=== PATIENT | female | born 2000 | race Two or more races ===

== ENCOUNTER 2024-11-07 09:07 | Outpatient (AMB) | payer MEDICAID, SELFPAY ==
[2024-11-07 09:21] VITALS: BP 118/75; PULSE 91; RESP 18; TEMP 36.3; O2SAT 95; BMI 32.9
--- NOTE | 2024-11-07 09:21 | AMB.OBINITIA ---
Vital Signs 11/07/24 09:21 Height 1.65 m Height Method Stated Weight 89.811 kg Weight Measurement Method Standing Scale BMI 32.9 BP 118/75 Blood Pressure Source Automatic Cuff Blood Pressure Location Left Upper Arm Position Sitting Respiration 18 Pulse 91 Pulse Source Monitor Temp 97.4 F Temp Source Oral Pulse Oximetry (%) 95 Oxygen Delivery Method Room Air Allergies/Home Meds Allergies & Medications Allergies No Known Allergies Allergy (Verified 11/07/24 09:22) Medication Reconciliation folic acid 1 mg tablet 1 mg PO DAILY 11/10/23 [History Confirmed 11/10/23] vits no.124-ferrous fum 27 mg iron-folic acid 800 mcg tablet ( Vitamin) 1 tab PO QDAY 90 days #90 tabs 11/07/24 [Rx] Intake Visit Data Collection New Patient or Established: Established Patient (seen at [facility] within 3 years) Reason for Visit:: CARE Seen by Clinical Staff ONLY (RN/MA): No Physical Therapist Center Manager Required: No Do You Feel Safe at Home: Yes Authorities Contacted: N/A PCP or OBGYN visit in last 3 months: Yes Hx Now: Yes Are you currently on any form of Control: No Last menstrual period: 04/05/24 Pain Present Currently: No Pain Scale Used: Martínez-Mancilla/Numerical Pain scale:: 0 Smoking Status Smoking Status: Never smoker Questionnaires Covid-19 Vaccine Questionnaire Has patient been vacinated for Covid-19 Have you been vacinated for Covid-19: Yes PHQ-9 PHQ-2 Over the last 2 weeks, how often have you been bothered by any of the following problems? 1. Little interest or pleasure in doing things: not at all 2. Feeling down, depressed, or hopeless: not at all Total score: 0 PHQ-9 3. Trouble falling or staying asleep, or sleeping too much: Not at all 4. Feeling tired or having little energy: Not at all 5. Poor appetite or overeating: Not at all 6. Feeling bad about yourself - or that you are a failure or have let yourself or your family down: Not at all 7. Trouble concentrating on things, such as reading the newspaper or watching television: Not at all 8. Moving or speaking so slowly that other people could have noticed? - Or the opposite - being so fidgety or restless that you have been moving around a lot more than usual: not at all 9. Thoughts that you would be better off or of hurting yourself in some way: Not at all Total score: 0 Source: Developed by Drs. Hussain Aguirre, Lucille Boone, Ino Encarnacion and colleagues, with an educational sharon from [employer]. Depression screen completed yes Social History Living Situation History Marital Status: Lives With: Family Housing: House Tobacco History Smoking Status: Never smoker Second Hand Smoke Exposure: No Alcohol History Alcohol Intake: Never Substance Use History Substance Use: NONE Domestic Abuse History Do You Feel Safe at Home: Yes Past Medical History Past Medical History Have you ever been diagnosed with any of the following: Neurological Problems Cerebrovascular Accident (CVA): No Transient Ischemic Attacks (TIA): No Dementia: No Alzheimer's Disease: No Parkinson's Disease: No Brain Tumor: No Meningitis: No Seizures: No Epilepsy: No Multiple Sclerosis: No Cardiology Problems Congestive Heart Failure: No Respiratory Problems Chronic Obstructive Pulmonary Disease (COPD): No Stomache/Intestinal Problems Hepatitis: No Diverticulitis: No Diverticulosis: No Ulcer: No Colorectal Cancer: No Crohn's Disease: No Obstructive Bowel: No Hiatal Hernia: No Hemorrhoids: No Gastroesophageal Reflux Disease: No Polyps: No Genital/Urinary Problems Renal Disease: No Reproductive Problems Breast Cancer: No Endometriosis: No Fibroids: No Genital Herpes: No Gonorrhea: No Pelvic Inflammatory Disease: No Musculoskeletal Problems Muscular Dystrophy: No Myasthenia Gravis: No Marfan's Syndrome: No Bone Cancer: No Arthritis: No Rheumatoid Arthritis: No Osteoporosis: No Degenerative Disk Disease: No Fractures: No Degenerative Joint Disease: No Osteomyelitis: No Head,Eye,Nose,Throat Problems Cataracts: No Glaucoma: No Blind: No Retinal Detachment: No Macular Degeneration: No Chronic Ear Infections: No Deafness: No Eye Prosthesis: No Endocrine Problems Diabetes Mellitus Type 1: No Diabetes Mellitus Type 2: No Blood Problems Anemia: No Leukemia: No Hemophilia: No Thalassemia: No Sickle Cell Disease: No Clotting Problems: No Psychologic Problems Schizophrenia: No Recreational Drug Use: No Bipolar Disorder: No Depression: No Anxiety: No Other Problems Hospitalization: No Down Syndrome: No Developmental Delay: No Shingles: No Falls: No Blood Transfusions: No Blood Transfusion Reaction: No Anesthesia Reactions: No Organ Transplant: No Chemotherapy: No Radiation Therapy: No Hyperbaric Therapy: No MRSA: No VRSA: No Vancomycin-Resistant Enterococci: No Human Immunodeficiency Virus (HIV): No Chicken Pox: No Measles: No Mumps: No Rubella (Chadian Measles): No Pertussis: No Clostridium Difficile: No Cancer: No Surgical History Angioplasty: No Appendectomy: No Bariatric Surgery: No Breast Surgery: No Cancer Surgery: No Carotid Endarterectomy: No Cholecystectomy: No Colectomy: No History of Present Illness MICHELE Mart is a 24-year-old 2 para 1 that is a transfer of care from [facility]. Patient comes to [facility] for her first visit today. Last menstrual period was April 05, 2024. Estimated due date January 10, 2025. Patient's first visit was at 10 weeks 3 days at [facility]. care uneventful. Patient has had several anatomy scans at in [place] at [facility]. Her next visit is November 14. Patient had 1 normal . History of hypertension at the end of the . So patient is currently taking low-dose baby aspirin 1 daily. Performed patient denies chronic illness. Denies surgeries. Denies social problems. Patient works in a [employer]. Denies any signs symptoms of at this time. Denies labor complaints. Reports good movement. Patient is A+, antibody screen negative, RPR nonreactive, rubella immune, hepatitis B negative, hep C negative, HIV is negative. GC and Chlamydia were negative. 1 hour GTT was 103. Patient's NIPT and AFP were negative. Screening tests were negative as well. OB Initial Visit OB Flowsheet OB Flowsheet Initial Weight: Not Recorded Date <del>?</del> EGA Weight Edema CTX Effacement BP Fundal ht Pres Dilation Effacement Station Visit Note Alb Glu FHR Mov 11/07/24 <del>?</del> 30w 6d 89.811 kg absent absent 118/75 30 24-year-old multipara for first visit. Patient was a transfer of care to [facility] from [facility]. Her has been uncomplicated. Patient reports movement. Denies contractions. Denies leaking or bleeding as well. Patient is currently taking low-dose baby aspirin because of history of preeclampsia her first . Patient's first was uncomplicated vaginal delivery. Tdap today. Follow-up maternal- appointment November 14. Discussed diet and weight gain. Increase fluids. Will refill vitamins 145 active Menstrual History Menstrual reliability: definite Flow: normal Menstrual regularity: regular Monthly: Yes Age at menarche: 11 On control pills at conception: No Associated symptoms (LMP): Reports nausea OB History : 2 Para: 1 Hx # Pregnancies: 0 Hx Total # of Abortions (Spontaneous & Elective): 0 # of Living Children: 1 Delivery History 1st : Child's name: mirta date: 11/23/23 sex: male Gestational age at delivery (weeks): 40 Delivery type: vaginal weight (lbs): 3175.147 g Delivery complications: PIH History of depression before or after : No Infection History & Risk Evaluation History of STDs: none HIV risk evaluation: low risk Hepatitis B risk evaluation: low risk Patient or partner has history of Genital Herpes: No Genetic Screening & History Genetic Screening/Teratology Counseling - Includes patient, baby's father, or anyone in either family with: 1. Patient's age 35 years or older as of estimated date of delivery: No 2. Thalassemia (Paraguayan, Romanian, Mediterranean, or Background); MCV less than 80: No 3. Neural Tube Defect (Meningomyelocele, Spina Bifida, or Anencephaly): No 4. Congenital Heart Defect: No 5. Down Syndrome: No 6. Mk-Sachs (Ashkenazi Oriental Orthodox, Cajun, Belizean Hettinger): No 7. Hermelinda Disease (Ashkenazi Oriental Orthodox): No 8. Familial Dysautonomia (Ashkenazi Oriental Orthodox): No 9. Sickle Cell Disease or Trait (): No 10. Hemophilia or other blood disorders: No 11. Muscular Dystrophy: No 12. Cystic Fibrosis: No 13. Dina's Chorea: No 14. Mental Retardation/Autism: No 15. Other inherited genetic or chromosomal disorder: No 16. Maternal Metabolic Disorder (EG,TYPE 1 Diabetes, PKU): No 17. Patient or baby's father had a child with defects not listed above: No 18. Recurrent loss or a stillbirth: No 19. Medications (including supplements, vitamins, herbs or otc drugs)/illicit/recreational drugs/alcohol since last menstrual period: No 20. Any other: No Infection History 1. Live with someone with TB or exposed to TB: No 2. Rash or viral illness since last menstrual period: No 3. Hepatitis B,C: No Other (see comments) Source: [employer] Review of Systems Review of Systems Systems Reviewed: All systems reviewed, normal except as documented Gastrointestinal Gastrointestinal: Reports nausea Exam General Limitations: no limitations General Appearance: alert, in no apparent distress, comfortable, cooperative, healthy appearing, well developed and well groomed Chest Chest inspection: Present normal inspection and symmetric chest wall rise Resp Respiratory exam: Present normal lung sounds bilaterally Card Cardiovascular exam: Present regular rate, normal rhythm and normal heart sounds Abdominal Abdominal exam: Present soft (FH:30, fht 145) and normal bowel sounds Psych Psychiatric exam: Present normal affect and normal mood Assessment & Plan Diagnosis / Problem List (1) Supervision of normal intrauterine in multigravida in third trimester: Status: Acute Plan Refill vitamins. Gave patient 90 and 3 refills. Tdap today. Discussed kick count and labor precautions. Patient will continue low-dose baby aspirin. Discussed diet and weight. Return in 2 weeks visit Additional Plan Follow Up: 2 Weeks (rtc 2 week ob check) Office Procedures OB Clinic LOC & Office Proc's Nursing/Assessment Patient Status: Established Patient OB Clinic Nursing Assessment: BP Monitoring, Medication Reconciliation, Update PMH in EMR and Vital Signs OB Clinic Coordination of Care: Consent,records obtained, informed consent, Education Simp Pt/Fam and Staff clarify orders Special Needs: Heart tones Established Patient Charge Established Patient Point Assignment: 105 Established Patient Point Charge: EP Level 3 (80-115) Injection/Vaccine Admin SQ Im Injection: Yes Immunizations Adacel(Tdap Adolesn/Adult)(PF) 2 Lf-(2.5-5-3-5)-5 Lf/0.5 mL IM syringe Performing Provider: Rosa Fuller CNM Performing Location: [facility] Administered by: Sharmaine Butcher MA on 11/07/24 09:49 Dose Route Admin Location Dispensed Lot Number Expiration Date [facility] Inspector [employer] 0.5 mL IM Left Deltoid 1 mL [id number] 10/20/26 [id number] [employer] VIS Given Date VIS Provided VIS Publication Date 11/07/24 Single Vaccine 24 Eligibility Eligibility Date Funding Source [facility]
== END 2024-11-07 09:42 | disposition home or self-care (01) ==
LOC: HODSOBC 09:07
PROVIDERS: Supervising Provider Obstetrics & Gynecology; Visit Provider Advanced Practice Midwife
DX: Z34.83 Encounter for supervision of other normal pregnancy, third trimester (principal); Z3A.30 30 weeks gestation of pregnancy; Z23 Encounter for immunization
CPT/HCPCS: 90471; 90715; 96372; 99213; G0463

== ENCOUNTER 2024-11-26 11:09 | Outpatient (AMB) | payer MEDICAID, SELFPAY ==
--- NOTE | 2024-11-26 11:17 | OBCLNT_ITS ---
Vital Signs 11/26/24 11:23 Height 1.65 m Height Method Stated Weight 90.889 kg Weight Measurement Method Standing Scale BMI 33.3 BP 126/80 Blood Pressure Source Automatic Cuff Blood Pressure Location Left Upper Arm Position Sitting Respiration 16 Pulse 95 Pulse Source Monitor Temp 97.2 F Temp Source Oral Pulse Oximetry (%) 97 Oxygen Delivery Method Room Air Allergies/Home Meds Allergies & Medications Allergies No Known Allergies Allergy (Verified 11/26/24 11:24) Medication Reconciliation folic acid 1 mg tablet 1 mg PO DAILY 11/10/23 [History Confirmed 11/26/24] vits no.124-ferrous fum 27 mg iron-folic acid 800 mcg tablet ( Vitamin) 1 tab PO QDAY 90 days #90 tabs 11/07/24 [Rx] Intake Visit Data Collection New Patient or Established: Established Patient (seen at [facility] within 3 years) Reason for Visit:: CARE Seen by Clinical Staff ONLY (RN/MA): No Washerette Machine Operator Required: No Do You Feel Safe at Home: Yes Authorities Contacted: N/A PCP or OBGYN visit in last 3 months: Yes Hx Now: Yes Are you currently on any form of Control: No Pain Present Currently: No Pain Scale Used: Martínez-Mancilla/Numerical Pain scale:: 0 Smoking Status Smoking Status: Never smoker Questionnaires Covid-19 Vaccine Questionnaire Has patient been vacinated for Covid-19 Have you been vacinated for Covid-19: Yes PHQ-9 PHQ-2 Over the last 2 weeks, how often have you been bothered by any of the following problems? 1. Little interest or pleasure in doing things: not at all 2. Feeling down, depressed, or hopeless: not at all Total score: 0 PHQ-9 3. Trouble falling or staying asleep, or sleeping too much: Not at all 4. Feeling tired or having little energy: Not at all 5. Poor appetite or overeating: Not at all 6. Feeling bad about yourself - or that you are a failure or have let yourself or your family down: Not at all 7. Trouble concentrating on things, such as reading the newspaper or watching television: Not at all 8. Moving or speaking so slowly that other people could have noticed? - Or the opposite - being so fidgety or restless that you have been moving around a lot more than usual: not at all 9. Thoughts that you would be better off or of hurting yourself in some way: Not at all Total score: 0 Source: Developed by Drs. Hussain Aguirre, Lucille Boone, Ino Encarnacion and colleagues, with an educational sharon from [employer]. Depression screen completed yes 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 at Home: Yes Past Medical History Past Medical History Have you ever been diagnosed with any of the following: Neurological Problems Cerebrovascular Accident (CVA): No Transient Ischemic Attacks (TIA): No Dementia: No Alzheimer's Disease: No Parkinson's Disease: No Brain Tumor: No Meningitis: No Seizures: No Epilepsy: No Multiple Sclerosis: No Cardiology Problems Congestive Heart Failure: No Respiratory Problems Chronic Obstructive Pulmonary Disease (COPD): No Stomache/Intestinal Problems Hepatitis: No Diverticulitis: No Diverticulosis: No Ulcer: No Colorectal Cancer: No Crohn's Disease: No Obstructive Bowel: No Hiatal Hernia: No Hemorrhoids: No Gastroesophageal Reflux Disease: No Genital/Urinary Problems Renal Disease: No Reproductive Problems Breast Cancer: No Endometriosis: No Fibroids: No Genital Herpes: No Gonorrhea: No Pelvic Inflammatory Disease: No Musculoskeletal Problems Muscular Dystrophy: No Myasthenia Gravis: No Marfan's Syndrome: No Bone Cancer: No Arthritis: No Rheumatoid Arthritis: No Osteoporosis: No Degenerative Disk Disease: No Fractures: No Degenerative Joint Disease: No Osteomyelitis: No Head,Eye,Nose,Throat Problems Cataracts: No Glaucoma: No Blind: No Retinal Detachment: No Macular Degeneration: No Chronic Ear Infections: No Deafness: No Eye Prosthesis: No Endocrine Problems Diabetes Mellitus Type 1: No Diabetes Mellitus Type 2: No Blood Problems Anemia: No Leukemia: No Hemophilia: No Thalassemia: No Sickle Cell Disease: No Clotting Problems: No Psychologic Problems Schizophrenia: No Recreational Drug Use: No Bipolar Disorder: No Depression: No Anxiety: No Other Problems Hospitalization: No Down Syndrome: No Developmental Delay: No Shingles: No Falls: No Blood Transfusions: No Blood Transfusion Reaction: No Anesthesia Reactions: No Organ Transplant: No Chemotherapy: No Radiation Therapy: No Hyperbaric Therapy: No MRSA: No VRSA: No Vancomycin-Resistant Enterococci: No Human Immunodeficiency Virus (HIV): No Chicken Pox: No Measles: No Mumps: No Rubella (Omani Measles): No Pertussis: No Clostridium Difficile: No Cancer: No Surgical History Angioplasty: No Appendectomy: No Bariatric Surgery: No Breast Surgery: No Cancer Surgery: No Carotid Endarterectomy: No Cholecystectomy: No Colectomy: No Visit OB Visit Log OB Flowsheet Initial Weight: Not Recorded Date -?-?-?-?-?-?-?-?-?-?-?-?- EGA Weight Edema CTX Effacement BP Fundal ht Pres Dilation Effacement Station Visit Note Alb Glu FHR Mov 11/07/24 -?-?-?-?-?-?-?-?-?-?-?-?- 30w 6d 89.811 kg absent absent 118/75 30 24-year-old multipara for first visit. Patient was a transfer of care to [facility] from [facility]. Her has been uncomplicated. Patient reports movement. Denies contractions. Denies leaking or bleeding as well. Patient is currently taking low-dose baby aspirin because of history of preeclampsia her first . Patient's first was uncomplicated vaginal delivery. Tdap today. Follow-up maternal- appointment November 14. Discussed diet and weight gain. Increase fluids. Will refill vitamins 145 active 11/26/24 -?-?-?-?-?-?-?-?-?-?-?-?- 33w 4d 90.889 kg absent absent 126/80 32 cephalic EFW 29%, f/mgm 12/23, fetus active. ptl precaution, fkc bid. RTC 2 week OB check and GBS EFW 29%, f/mgm /, fetus a ctive. ptl precaution, fkc bid. RTC 2 week OB check and GBS. protien:+1, NIT-, leuk+1 156 active AMPARO Calculator Estimated Delivery Date Method Current WG Current Estimate 01/10/25 Ultrasound #2 33w 4d Other Estimates 01/10/25 LMP (Certain) 33w 4d 01/10/25 Ultrasound #1 33w 4d Assessment & Plan Diagnosis / Problem List (1) Supervision of normal intrauterine in multigravida in third trimester: Status: Acute Plan Discussed PTL precautions. kick counts twice a day. GBS next visit. Return in 2 weeks OB check Additional Plan Follow Up: 2 Weeks (obc) Office Procedures OB Clinic LOC & Office Proc's Nursing/Assessment Patient Status: Established Patient OB Clinic Nursing Assessment: Medication Reconciliation, Update PMH in EMR and Vital Signs OB Clinic Coordination of Care: Complex Care and Chronic Disease 1-5, Consent,records obtained, informed consent, Education Simp Pt/Fam, Results/Orders obtained and Staff clarify orders Special Needs: Heart tones Miscellaneous Interventions: Blood/Urine Collection Established Patient Charge Established Patient Point Assignment: 150 Established Patient Point Charge: EP Level 4 (120-155)
[2024-11-26 11:23] VITALS: BP 126/80; PULSE 95; RESP 16; TEMP 36.2; O2SAT 97; BMI 33.3
== END 2024-11-26 11:32 | disposition home or self-care (01) ==
LOC: HODSOBC 11:09
PROVIDERS: Supervising Provider Advanced Practice Midwife; Visit Provider Advanced Practice Midwife
DX: Z34.83 Encounter for supervision of other normal pregnancy, third trimester (principal); Z3A.33 33 weeks gestation of pregnancy
CPT/HCPCS: 99214; G0463

== ENCOUNTER 2024-12-10 11:31 | Outpatient (AMB) | payer MEDICAID, SELFPAY ==
--- NOTE | 2024-12-10 11:46 | OBCLNT_ITS ---
Vital Signs 12/10/24 11:47 Height 1.65 m Height Method Stated Weight 92.76 kg Weight Measurement Method Standing Scale BMI 34.0 BP 130/85 H Blood Pressure Source Automatic Cuff Blood Pressure Location Left Upper Arm Position Sitting Respiration 18 Pulse 99 Pulse Source Monitor Temp 97.2 F Temp Source Oral Pulse Oximetry (%) 98 Oxygen Delivery Method Room Air Allergies/Home Meds Allergies & Medications Allergies No Known Allergies Allergy (Verified 12/10/24 11:51) Medication Reconciliation folic acid 1 mg tablet 1 mg PO DAILY 11/10/23 [History Confirmed 12/10/24] vits no.124-ferrous fum 27 mg iron-folic acid 800 mcg tablet ( Vitamin) 1 tab PO QDAY 90 days #90 tabs 11/07/24 [Rx Confirmed 12/10/24] Intake Visit Data Collection New Patient or Established: Established Patient (seen at [facility] within 3 years) Reason for Visit:: obc Contact Officer Required: No Do You Feel Safe at Home: Yes Authorities Contacted: N/A PCP or OBGYN visit in last 3 months: Yes Date of Last PCP or OBGYN visit: 11/26/24 Hx Now: Yes Are you currently on any form of Control: No Pain Present Currently: No Pain Scale Used: Martínez-Mancilla/Numerical Pain scale:: 0 Smoking Status Smoking Status: Never smoker Questionnaires Covid-19 Vaccine Questionnaire Has patient been vacinated for Covid-19 Have you been vacinated for Covid-19: Yes PHQ-9 PHQ-2 Over the last 2 weeks, how often have you been bothered by any of the following problems? 1. Little interest or pleasure in doing things: not at all 2. Feeling down, depressed, or hopeless: not at all Total score: 0 PHQ-9 3. Trouble falling or staying asleep, or sleeping too much: Not at all 4. Feeling tired or having little energy: Not at all 5. Poor appetite or overeating: Not at all 6. Feeling bad about yourself - or that you are a failure or have let yourself or your family down: Not at all 7. Trouble concentrating on things, such as reading the newspaper or watching television: Not at all 8. Moving or speaking so slowly that other people could have noticed? - Or the opposite - being so fidgety or restless that you have been moving around a lot more than usual: not at all 9. Thoughts that you would be better off or of hurting yourself in some way: Not at all If you checked off any problems, how difficult have these problems made it for you to do your work, take care of things at home, or get along with other people?: not difficult at all Source: Developed by Drs. Hussain Aguirre, Lucille Boone, Ino Encarnacion and colleagues, with an educational sharon from [employer].. Depression screen completed yes 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 at Home: Yes Care OB Visit Log OB Flowsheet Initial Weight: Not Recorded Date -?-?-?-?-?-?-?-?-?-?-?-?- EGA Weight Edema CTX Effacement BP Fundal ht Pres Dilation Effacement Station Visit Note Alb Glu FHR Mov 11/07/24 -?-?-?-?-?-?-?-?-?-?-?-?- 30w 6d 89.811 kg absent absent 118/75 30 24-year-old multipara for first visit. Patient was a transfer of care to family from [facility]. Her has been uncomplicated. Patient reports movement. Denies contractions. Denies leaking or bleeding as well. Patient is currently taking low-dose baby aspirin because of history of preeclampsia her first . Patient's first was uncomplicated vaginal delivery. Tdap today. Follow-up maternal- appointment November 14. Discussed diet and weight gain. Increase fluids. Will refill vitamins 145 active 11/26/24 -?-?-?-?-?-?-?-?-?-?-?-?- 33w 4d 90.889 kg absent absent 126/80 32 cephalic EFW 29%, f/mgm 12/23, fetus active. ptl precaution, fkc bid. RTC 2 week OB check and GBS EFW 29%, f/mgm 12/23, fetus a ctive. ptl precaution, fkc bid. RTC 2 week OB check and GBS. protien:+1, NIT-, leuk+1 156 active 12/10/24 -?-?-?-?-?-?-?-?-?-?-?-?- 35w 4d 92.76 kg absent absent 130/85 34 cephalic f/u MFM 12/19, efw was 29%, fetus active, no c/o of PTL, discuss fkc bid, labor precaution, continue PNV, GBS today. rtc1 week 151 active AMPARO Calculator Estimated Delivery Date Method Current WG Current Estimate 01/10/25 Ultrasound #2 35w 4d Other Estimates 01/10/25 LMP (Certain) 35w 4d 01/10/25 Ultrasound #1 35w 4d Comments: 24 yo. , lmp 04/05/25. EDC:01/10/25. 1hr GTT:nwl, A+,abs-,rpr;;nr, gc/ct-, RUB IMM< Hba=sag-, hiv-,hc-, NIPT and carrier screen-. Assessment & Plan Diagnosis / Problem List (1) Supervision of normal intrauterine in multigravida in third trimester: Status: Acute Plan GBS today. discuss labor precaution, fkc bid, continue PNV, increase fluid. f/u mfm 12/19. 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
[2024-12-10 11:47] VITALS: BP 130/85; PULSE 99; RESP 18; TEMP 36.2; O2SAT 98; BMI 34.0
[2024-12-10 12:05] LABS: Bilirubin,Urine Clinitek 1+ (Negative); Blood,Urine Clinitek Trace-intact (Negative); Glucose, Urine Clinitek Negative (Negative); Ketones,Urine Clinitek Trace (Negative); Leukocyte Esterase,Urine Clin 1+ (Negative); Nitrite,Urine Clinitek Negative (Negative); PH,Urine Clinitek 6.5 (5.0-7.0); Protein,Urine Clinitek 2+ (Neg - Trace); Specific Gravity,Urine Clin >= 1.030 (1.001-1.030)
== END 2024-12-10 12:03 | disposition home or self-care (01) ==
LOC: HODSOBC 11:31
PROVIDERS: Supervising Provider Advanced Practice Midwife; Visit Provider Advanced Practice Midwife
DX: Z34.83 Encounter for supervision of other normal pregnancy, third trimester (principal); Z3A.35 35 weeks gestation of pregnancy
CPT/HCPCS: 81001; 99213; G0463

== ENCOUNTER 2024-12-18 10:38 | Outpatient (AMB) | payer MEDICAID, SELFPAY ==
[2024-12-18 11:36] VITALS: BP 129/82; PULSE 95; RESP 18; TEMP 36; O2SAT 96; BMI 33.5
--- NOTE | 2024-12-18 11:36 | OBCLNT_ITS ---
Vital Signs 12/18/24 11:36 Height 1.65 m Height Method Stated Weight 91.229 kg Weight Measurement Method Standing Scale BMI 33.5 BP 129/82 Blood Pressure Source Automatic Cuff Blood Pressure Location Left Upper Arm Position Sitting Respiration 18 Pulse 95 Pulse Source Monitor Temp 96.8 F Temp Source Oral Pulse Oximetry (%) 96 Oxygen Delivery Method Room Air Allergies/Home Meds Allergies & Medications Allergies No Known Allergies Allergy (Verified 12/18/24 11:36) Medication Reconciliation folic acid 1 mg tablet 1 mg PO DAILY 11/10/23 [History Confirmed 12/18/24] vits no.124-ferrous fum 27 mg iron-folic acid 800 mcg tablet ( Vitamin) 1 tab PO QDAY 90 days #90 tabs 11/07/24 [Rx Confirmed 12/18/24] Intake Visit Data Collection New Patient or Established: Established Patient (seen at [facility] within 3 years) Reason for Visit:: OBC Seen by Clinical Staff ONLY (RN/MA): No [email or web address] Android Developer Required: No Do You Feel Safe at Home: Yes Authorities Contacted: N/A PCP or OBGYN visit in last 3 months: Yes Date of Last PCP or OBGYN visit: 12/10/24 Hx Now: Yes Are you currently on any form of Control: No Pain Present Currently: No Pain Scale Used: Martínez-Mancilla/Numerical Pain scale:: 0 Smoking Status Smoking Status: Never smoker Questionnaires Covid-19 Vaccine Questionnaire Has patient been vacinated for Covid-19 Have you been vacinated for Covid-19: Yes PHQ-9 PHQ-2 Over the last 2 weeks, how often have you been bothered by any of the following problems? 1. Little interest or pleasure in doing things: not at all 2. Feeling down, depressed, or hopeless: not at all Total score: 0 PHQ-9 3. Trouble falling or staying asleep, or sleeping too much: Not at all 4. Feeling tired or having little energy: Not at all 5. Poor appetite or overeating: Not at all 6. Feeling bad about yourself - or that you are a failure or have let yourself or your family down: Not at all 7. Trouble concentrating on things, such as reading the newspaper or watching television: Not at all 8. Moving or speaking so slowly that other people could have noticed? - Or the opposite - being so fidgety or restless that you have been moving around a lot more than usual: not at all 9. Thoughts that you would be better off or of hurting yourself in some way: Not at all Total score: 0 If you checked off any problems, how difficult have these problems made it for you to do your work, take care of things at home, or get along with other people?: not difficult at all Source: Developed by Drs. Hussain Aguirre, Lucille Boone, Ino Encarnacion and colleagues, with an educational sharon from [employer]. 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 Past Medical History: No Hx Neurological Disorders, No Hx Breast Cancer, Yes Hx Cardiac Disorders (ELEVATED BP'S DURING THIS ), No Hx Cancer, No Hx Blood Disorders, No Hx Anemia, No Hx Gastrointestinal Disorders, No Hx Renal Disease, No Hx Diabetes Mellitus Type 1 and No Hx Diabetes Mellitus Type 2 Care OB Visit Log OB Flowsheet Initial Weight: Not Recorded Date -?-?-?-?-?-?-?-?-?-?-?-?- EGA Weight BP Alb Glu CTX Pres Fundal ht FHR Mov Dilation Station Effacement Hx Notes Visit Note 11/07/24 -?-?-?-?-?-?-?-?-?-?-?--?- 30w 6d 89.811 kg 118/75 absent 30 145 ac tive 24-year-old multipara for first visit. Patient was a transfer of care to [facility] from [facility]. Her has been uncomplicated. Patient reports movement. Denies contractions. Denies leaking or bleeding as well. Patient is currently taking low-dose baby aspirin because of history of preeclampsia her first . Patient's first was uncomplicated vaginal delivery. Tdap today. Follow-up maternal- appointment November 14. Discussed diet and weight gain. Increase fluids. Will refill vitamins 11/26/24 -?-?-?-?-?-?-?-?-?-?-?-?- 33w 4d 90.889 kg 126/80 absent cephalic 32 156 active EFW 29%, f/mgm 12/23, fetus active. ptl precaution, fkc bid. RTC 2 week OB check and GBS EFW 29%, f/mgm 12/23, fetus a ctive. ptl precaution, fkc bid. RTC 2 week OB check and GBS. protien:+1, NIT-, leuk+1 12/10/24 -?-?-?-?-?-?-?-?-?-?-?-?- 35w 4d 92.76 kg 130/85 absent cephalic 34 151 active f/u MFM 12/19, efw was 29%, fetus active, no c/o of PTL, discuss fkc bid, labor precaution, continue PNV, GBS today. rtc1 week 12/18/24 -?-?-?-?-?-?-?-?-?-?-?-?- 36w 5d 91.229 kg 129/82 absent cephalic 36 154 active doing well, no c/o labor. no leaking or bleeding, fetus active review s/s of labor with patient, continue PNV. discuss fkc bid. RTC 1 week AMPARO Calculator Estimated Delivery Date Method Current WG Current Estimate 01/10/25 Ultrasound #1 36w 5d Other Estimates 01/10/25 LMP (Certain) 36w 5d 01/10/25 Ultrasound #2 36w 5d Comments: 24 yo . lmp 04/05/24 EDC 01/10/25. A+,abs-,rpr;;nr, rub imm, hbsag-,hiv-, HC-, GC/CT-, UT-, 1 hr gtt-, NIPT and carrier screen-,GBS- Office Procedures OB Clinic LOC & Office Proc's Nursing/Assessment Patient Status: Established Patient OB Clinic Nursing Assessment: Medication Reconciliation, Update PMH in EMR and Vital Signs OB Clinic Coordination of Care: Education Complex Pt/Fam, Consent,records obtained, informed consent, Results/Orders obtained and Staff clarify orders Special Needs: Heart tones Established Patient Charge Established Patient Point Assignment: 100 Established Patient Point Charge: EP Level 3 (80-115) Assessment & Plan Diagnosis / Problem List (1) Supervision of normal intrauterine in multigravida in third trimester: Status: Acute Plan discuss labor precaution and s/s of labor. advised to do fkc BID, increase fluid. continue PNV. RTC 1 week Additional Plan Follow Up: 1 Week (obc)
== END 2024-12-18 11:44 | disposition home or self-care (01) ==
LOC: HODSOBC 10:38
PROVIDERS: Supervising Provider Advanced Practice Midwife; Visit Provider Advanced Practice Midwife
DX: Z34.83 Encounter for supervision of other normal pregnancy, third trimester (principal); Z3A.36 36 weeks gestation of pregnancy
CPT/HCPCS: 81001; 99213; G0463

== ENCOUNTER 2024-12-26 10:59 | Outpatient (AMB) | payer MEDICAID, SELFPAY ==
[2024-12-26 11:16] VITALS: BP 133/88; PULSE 91; RESP 18; TEMP 36.3; O2SAT 96; BMI 33.6
--- NOTE | 2024-12-26 11:16 | OBCLNT_ITS ---
Vital Signs 12/26/24 11:16 Height 1.65 m Height Method Stated Weight 91.682 kg Weight Measurement Method Standing Scale BMI 33.6 BP 133/88 H Blood Pressure Source Automatic Cuff Blood Pressure Location Right Upper Arm Position Sitting Respiration 18 Pulse 91 Pulse Source Monitor Temp 97.4 F Temp Source Oral Pulse Oximetry (%) 96 Oxygen Delivery Method Room Air Allergies/Home Meds Allergies & Medications Allergies No Known Allergies Allergy (Verified 12/26/24 11:18) Medication Reconciliation folic acid 1 mg tablet 1 mg PO DAILY 11/10/23 [History Confirmed 12/26/24] vits no.124-ferrous fum 27 mg iron-folic acid 800 mcg tablet ( Vitamin) 1 tab PO QDAY 90 days #90 tabs 11/07/24 [Rx Confirmed 12/26/24] Intake Visit Data Collection New Patient or Established: Established Patient (seen at [facility] within 3 years) Reason for Visit:: CARE Seen by Clinical Staff ONLY (RN/MA): No Business Banking Manager Required: No Do You Feel Safe at Home: Yes Authorities Contacted: N/A PCP or OBGYN visit in last 3 months: Yes Hx Now: Yes Are you currently on any form of Control: No Pain Present Currently: No Pain Scale Used: Martínez-Mancilla/Numerical Pain scale:: 0 Smoking Status Smoking Status: Never smoker Questionnaires Covid-19 Vaccine Questionnaire Has patient been vacinated for Covid-19 Have you been vacinated for Covid-19: Yes PHQ-9 PHQ-2 Over the last 2 weeks, how often have you been bothered by any of the following problems? 1. Little interest or pleasure in doing things: not at all 2. Feeling down, depressed, or hopeless: not at all Total score: 0 PHQ-9 3. Trouble falling or staying asleep, or sleeping too much: Not at all 4. Feeling tired or having little energy: Not at all 5. Poor appetite or overeating: Not at all 6. Feeling bad about yourself - or that you are a failure or have let yourself or your family down: Not at all 7. Trouble concentrating on things, such as reading the newspaper or watching television: Not at all 8. Moving or speaking so slowly that other people could have noticed? - Or the opposite - being so fidgety or restless that you have been moving around a lot more than usual: not at all 9. Thoughts that you would be better off or of hurting yourself in some way: Not at all Total score: 0 Source: Developed by Drs. Hussain Aguirre, Lucille Boone, Ino Encarnacion and colleagues, with an educational sharon from [employer]. 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 Past Medical History: No Hx Neurological Disorders, No Hx Breast Cancer, Yes Hx Cardiac Disorders (ELEVATED BP'S DURING THIS ), No Hx Cancer, No Hx Blood Disorders, No Hx Anemia, No Hx Gastrointestinal Disorders, No Hx Renal Disease, No Hx Diabetes Mellitus Type 1 and No Hx Diabetes Mellitus Type 2 Care OB Visit Log OB Flowsheet Initial Weight: Not Recorded Date -?-?-?-?-?-?-?-?-?-?-?-?- EGA Weight BP Alb Glu CTX Pres Fundal ht FHR Mov Dilation Station Effacement Hx Notes Visit Note 11/07/24 -?-?-?-?-?-?-?-?-?-?-?-?- 30w 6d 89.811 kg 118/75 absent 30 145 ac tive 24-year-old multipara for first visit. Patient was a transfer of care to family from [facility]. Her has been uncomplicated. Patient reports movement. Denies contractions. Denies leaking or bleeding as well. Patient is currently taking low-dose baby aspirin because of history of preeclampsia her first . Patient's first was uncomplicated vaginal delivery. Tdap today. Follow-up maternal- appointment November 14. Discussed diet and weight gain. Increase fluids. Will refill vitamins 11/26/24 -?-?-?-?-?-?-?-?-?-?-?-?- 33w 4d 90.889 kg 126/80 absent cephalic 32 156 active EFW 29%, f/mgm 12/23, fetus active. ptl precaution, fkc bid. RTC 2 week OB check and GBS EFW 29%, f/mgm 5/25, fetus a ctive. ptl precaution, fkc bid. RTC 2 week OB check and GBS. protien:+1, NIT-, leuk+1 12/10/24 -?-?-?-?-?-?-?-?-?-?-?-?- 35w 4d 92.76 kg 130/85 absent cephalic 34 151 active f/u MFM 12/19, efw was 29%, fetus active, no c/o of PTL, discuss fkc bid, labor precaution, continue PNV, GBS today. rtc1 week 12/18/24 -?-?-?-?-?-?-?-?-?-?-?-?- 36w 5d 91.229 kg 129/82 absent cephalic 36 154 active doing well, no c/o labor. no leaking or bleeding, fetus active review s/s of labor with patient, continue PNV. discuss fkc bid. RTC 1 week 12/26/24 -?-?-?-?-?-?-?-?-?-?-?-?- 37w 6d 91.682 kg 133/88 occasional cephalic 36 135 active doing well. increased pressure, fetus active, denies leaking or bleeding discuss fkc bid, review labor precaurion and ER precaution. continue PNV, increase fluid. RTC 1 pedro AMPARO Calculator Estimated Delivery Date Method Current WG Current Estimate 01/10/25 Ultrasound #1 37w 6d Other Estimates 01/10/25 LMP (Certain) 37w 6d 01/10/25 Ultrasound #2 37w 6d Notes Visit Date: 12/26/24 Last Updated by: Rosa Fuller, CARMELINA 24 yo . LMP 04/06/24. EDC01/10/25. A+,abs-, rpr;;nr, rub imm, hbsag-, hiv-, GC/CT-, hbsag-,hiv-, HC-, GBS-. 1 hr gtt- Office Procedures OB Clinic LOC & Office Proc's Nursing/Assessment Patient Status: Established Patient OB Clinic Nursing Assessment: Medication Reconciliation, Update PMH in EMR and Vital Signs OB Clinic Coordination of Care: Complex Care and Chronic Disease 1-5, Consent,records obtained, informed consent, Education Simp Pt/Fam, Lab and Imaging orders, Results/Orders obtained and Staff clarify orders Special Needs: Heart tones Established Patient Charge Established Patient Point Assignment: 135 Established Patient Point Charge: EP Level 4 (120-155) Assessment & Plan Diagnosis / Problem List (1) Supervision of normal intrauterine in multigravida in third trimester: Status: Acute Plan discuss labor precaution, fkc bid, discuss ER precaution. fkc BID Additional Plan Follow Up: 1 Week (OBC)
== END 2024-12-26 11:23 | disposition home or self-care (01) ==
LOC: HODSOBC 10:59
PROVIDERS: Supervising Provider Advanced Practice Midwife; Visit Provider Advanced Practice Midwife
DX: Z34.83 Encounter for supervision of other normal pregnancy, third trimester (principal); Z3A.37 37 weeks gestation of pregnancy
CPT/HCPCS: 99214; G0463

== ENCOUNTER 2025-01-02 09:03 | Outpatient (AMB) | payer MEDICAID, SELFPAY ==
[2025-01-02 09:11] VITALS: BP 131/84; PULSE 16; RESP 16; TEMP 36.4; O2SAT 96; BMI 34.0
--- NOTE | 2025-01-02 09:11 | OBCLNT_ITS ---
Vital Signs 01/02/25 09:11 Height 1.65 m Height Method Stated Weight 92.703 kg Weight Measurement Method Standing Scale BMI 34.0 BP 131/84 H Blood Pressure Source Automatic Cuff Blood Pressure Location Right Upper Arm Position Sitting Respiration 16 Pulse 16 L Pulse Source Monitor Temp 97.5 F Temp Source Oral Pulse Oximetry (%) 96 Oxygen Delivery Method Room Air Allergies/Home Meds Allergies & Medications Allergies No Known Allergies Allergy (Verified 01/02/25 09:13) Medication Reconciliation folic acid 1 mg tablet 1 mg PO DAILY 11/10/23 [History Confirmed 01/02/25] vits no.124-ferrous fum 27 mg iron-folic acid 800 mcg tablet ( Vitamin) 1 tab PO QDAY 90 days #90 tabs 11/07/24 [Rx Confirmed 01/02/25] Intake Visit Data Collection New Patient or Established: Established Patient (seen at [facility] within 3 years) Reason for Visit:: CARE Seen by Clinical Staff ONLY (RN/MA): No Psychiatric Aide Required: No Do You Feel Safe at Home: Yes Authorities Contacted: N/A PCP or OBGYN visit in last 3 months: Yes Hx Now: Yes Are you currently on any form of Control: No Pain Present Currently: No Pain Scale Used: Martínez-Mancilla/Numerical Pain scale:: 0 Smoking Status Smoking Status: Never smoker Questionnaires Covid-19 Vaccine Questionnaire Has patient been vacinated for Covid-19 Have you been vacinated for Covid-19: Yes PHQ-9 PHQ-2 Over the last 2 weeks, how often have you been bothered by any of the following problems? 1. Little interest or pleasure in doing things: not at all 2. Feeling down, depressed, or hopeless: not at all Total score: 0 PHQ-9 3. Trouble falling or staying asleep, or sleeping too much: Not at all 4. Feeling tired or having little energy: Not at all 5. Poor appetite or overeating: Not at all 6. Feeling bad about yourself - or that you are a failure or have let yourself or your family down: Not at all 7. Trouble concentrating on things, such as reading the newspaper or watching television: Not at all 8. Moving or speaking so slowly that other people could have noticed? - Or the opposite - being so fidgety or restless that you have been moving around a lot more than usual: not at all 9. Thoughts that you would be better off or of hurting yourself in some way: Not at all Total score: 0 Source: Developed by Drs. Hussain Aguirre, Lucille Boone, Ino Encarnacion and colleagues, with an educational sharon from [employer]. 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 Past Medical History: No Hx Neurological Disorders, No Hx Breast Cancer, Yes Hx Cardiac Disorders (ELEVATED BP'S DURING THIS ), No Hx Cancer, No Hx Blood Disorders, No Hx Anemia, No Hx Gastrointestinal Disorders, No Hx Renal Disease, No Hx Diabetes Mellitus Type 1 and No Hx Diabetes Mellitus Type 2 Care OB Visit Log OB Flowsheet Initial Weight: Not Recorded Date -?-?-?-?-?-?-?-?-?-?-?-?- EGA Weight BP Alb Glu CTX Pres Fundal ht FHR Mov Dilation Station Effacement Hx Notes Visit Note 11/07/24 -?-?-?-?-?-?-?-?-?-?-?-?- 30w 6d 89.811 kg 118/75 absent 30 145 ac tive 24-year-old multipara for first visit. Patient was a transfer of care to family from [facility]. Her has been uncomplicated. Patient reports movement. Denies contractions. Denies leaking or bleeding as well. Patient is currently taking low-dose baby aspirin because of history of preeclampsia her first . Patient's first was uncomplicated vaginal delivery. Tdap today. Follow-up maternal- appointment November 14. Discussed diet and weight gain. Increase fluids. Will refill vitamins 11/26/24 -?-?-?-?-?-?-?-?-?-?-?-?- 33w 4d 90.889 kg 126/80 absent cephalic 32 156 active EFW 29%, f/mgm 12/23, fetus active. ptl precaution, fkc bid. RTC 2 week OB check and GBS EFW 29%, f/mgm 12/23, fetus a ctive. ptl precaution, fkc bid. RTC 2 week OB check and GBS. protien:+1, NIT-, leuk+1 12/10/24 -?-?-?-?-?-?-?-?-?-?--?-?- 35w 4d 92.76 kg 130/85 absent cephalic 34 151 active f/u MFM 12/19, efw was 29%, fetus active, no c/o of PTL, discuss fkc bid, labor precaution, continue PNV, GBS today. rtc1 week 12/18/24 -?-?-?-?-?-?-?-?-?-?-?-?- 36w 5d 91.229 kg 129/82 absent cephalic 36 154 active doing well, no c/o labor. no leaking or bleeding, fetus active review s/s of labor with patient, continue PNV. discuss fkc bid. RTC 1 week 12/26/24 -?-?-?-?-?-?-?-?-?-?-?-?- 37w 6d 91.682 kg 133/88 occasional cephalic 36 135 active doing well. increased pressure, fetus active, denies leaking or bleeding discuss fkc bid, review labor precaurion and ER precaution. continue PNV, increase fluid. RTC 1 weel 01/02/25 -?-?-?-?-?-?-?-?-?-?-?-?- 38w 6d 92.703 kg 131/84 occasional cephalic 37 146 active doing well, increased pressure. no leaking or Bleeding fkc bid, increase fluid. discuss labor precaution, ER precaution and danger s/s. rtc 1 week AMPARO Calculator Estimated Delivery Date Method Current WG Current Estimate 01/10/25 Ultrasound #1 38w 6d Other Estimates 01/10/25 LMP (Certain) 38w 6d 01/10/25 Ultrasound #2 38w 6d Notes Visit Date: 12/26/24 Last Updated by: Rosa Fuller, SUKHDEV 24 yo . LMP 04/06/24. EDC01/10/25. A+,abs-, rpr;;nr, rub imm, hbsag-, hiv-, GC/CT-, hbsag-,hiv-, HC-, GBS-. 1 hr gtt- Office Procedures OB Clinic LOC & Office Proc's Nursing/Assessment Patient Status: Established Patient OB Clinic Nursing Assessment: Medication Reconciliation, Update PMH in EMR and Vital Signs OB Clinic Coordination of Care: Complex Care and Chronic Disease 1-5, Consent,records obtained, informed consent, Education Simp Pt/Fam, Lab and Imaging orders, Results/Orders obtained and Staff clarify orders Special Needs: Heart tones Established Patient Charge Established Patient Point Assignment: 135 Established Patient Point Charge: EP Level 4 (120-155) Assessment & Plan Diagnosis / Problem List (1) Supervision of normal intrauterine in multigravida in third trimester: Status: Acute Plan discuss labor precaution and fkc bid. comfort measure for early labor hydrate. ER precaution and danger s/s. rtc 1 wk OBC Additional Plan Follow Up: 1 Week (obc)
== END 2025-01-02 09:42 | disposition home or self-care (01) ==
LOC: HODSOBC 09:03
PROVIDERS: Supervising Provider Advanced Practice Midwife; Visit Provider Advanced Practice Midwife
DX: Z34.83 Encounter for supervision of other normal pregnancy, third trimester (principal); Z3A.38 38 weeks gestation of pregnancy
CPT/HCPCS: 99214; G0463

== ENCOUNTER 2025-01-09 10:36 | Outpatient (AMB) | payer MEDICAID, SELFPAY ==
[2025-01-09 11:20] VITALS: BP 131/88; PULSE 83; RESP 18; TEMP 36.6; O2SAT 97; BMI 32.8
--- NOTE | 2025-01-09 11:20 | OBCLNT_ITS ---
Vital Signs 01/09/25 11:20 Height 1.68 m Height Method Stated Weight 92.193 kg Weight Measurement Method Standing Scale BMI 32.8 BP 131/88 H Blood Pressure Source Automatic Cuff Blood Pressure Location Right Upper Arm Position Sitting Respiration 18 Pulse 83 Pulse Source Monitor Temp 97.8 F Temp Source Temporal Artery Scan Pulse Oximetry (%) 97 Oxygen Delivery Method Room Air Allergies/Home Meds Allergies & Medications Allergies No Known Allergies Allergy (Verified 01/02/25 09:13) Intake Visit Data Collection New Patient or Established: Established Patient (seen at [facility] within 3 years) 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 1. Little interest or pleasure in doing things: not at all PHQ-9 8. Moving or speaking so slowly that other people could have noticed? - Or the opposite - being so fidgety or restless that you have been moving around a lot more than usual: not at all Source: Developed by Drs. Hussain Aguirre, Lucille Boone, Ino Encarnacion and colleagues, with an educational sharon from [employer]. 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 Past Medical History: No Hx Neurological Disorders, No Hx Breast Cancer, Yes Hx Cardiac Disorders (ELEVATED BP'S DURING THIS ), No Hx Cancer, No Hx Blood Disorders, No Hx Anemia, No Hx Gastrointestinal Disorders, No Hx Renal Disease, No Hx Diabetes Mellitus Type 1 and No Hx Diabetes Mellitus Type 2 Care OB Visit Log OB Flowsheet Initial Weight: Not Recorded Date -?-?-?-?-?-?-?-?-?-?-?-?- EGA Weight BP Alb Glu CTX Pres Fundal ht FHR Mov Dilation Station Effacement Hx Notes Visit Note 11/07/24 -?-?-?-?-?-?-?-?-?-?-?-?- 30w 6d 89.811 kg 118/75 absent 30 145 ac tive 24-year-old multipara for first visit. Patient was a transfer [facility] care [facility] Her has been uncomplicated. Patient reports movement. Denies contractions. Denies leaking or bleeding as well. Patient is currently taking low-dose baby aspirin because of history of preeclampsia her first . Patient's first was uncomplicated vaginal delivery. Tdap today. Follow-up maternal- appointment November 14. Discussed diet and weight gain. Increase fluids. Will refill vitamins 11/26/24 -?-?-?-?-?-?-?-?-?-?-?-?- 33w 4d 90.889 kg 126/80 absent cephalic 32 156 active EFW 29%, f/mgm 12/23, fetus active. ptl precaution, fkc bid. RTC 2 week OB check and GBS EFW 29%, f/mgm 12/23, fetus a ctive. ptl precaution, fkc bid. RTC 2 week OB check and GBS. protien:+1, NIT-, leuk+1 12/10/24 -?-?-?-?-?-?-?-?-?-?-?-?- 35w 4d 92.76 kg 130/85 absent cephalic 34 151 active f/u MFM 12/19, efw was 29%, fetus active, no c/o of PTL, discuss fkc bid, labor precaution, continue PNV, GBS today. rtc1 week 12/18/24 -?-?-?-?-?-?-?-?-?-?-?-?- 36w 5d 91.229 kg 129/82 absent cephalic 36 154 active doing well, no c/o labor. no leaking or bleeding, fetus active review s/s of labor with patient, continue PNV. discuss fkc bid. RTC 1 week 12/26/24 -?-?-?-?-?-?-?-?-?-?-?-?- 37w 6d 91.682 kg 133/88 occasional cephalic 36 135 active doing well. increased pressure, fetus active, denies leaking or bleeding discuss fkc bid, review labor precaurion and ER precaution. continue PNV, increase fluid. RTC 1 weel 01/02/25 -?-?-?-?-?-?-?-?-?-?-?-?- 38w 6d 92.703 kg 131/84 occasional cephalic 37 146 active doing well, increased pressure. no leaking or Bleeding fkc bid, increase fluid. discuss labor precaution, ER precaution and danger s/s. rtc 1 week 01/09/25 -?--?-?-?-?-?-?-?-?-?-?-?- 39w 6d 92.193 kg 131/88 occasional cephalic 38 145 active occ uc and pressure, denies vag bleeding or leaking, fetus active schedule IOL 01/10/25. discuss labor precaution, fkc bid, discuss danger s/s rtc 1 week AMPARO Calculator Estimated Delivery Date Method Current WG Current Estimate 01/10/25 Ultrasound #1 39w 6d Other Estimates 01/10/25 LMP (Certain) 39w 6d 01/10/25 Ultrasound #2 39w 6d Notes Visit Date: 12/26/24 Last Updated by: Rosa Fuller, CN 24 yo . LMP 04/06/24. EDC01/10/25. A+,abs-, rpr;;nr, rub imm, hbsag-, hiv-, GC/CT-, hbsag-,hiv-, HC-, GBS-. 1 hr gtt- Office Procedures OB Clinic LOC & Office Proc's Nursing/Assessment Patient Status: Established Patient OB Clinic Nursing Assessment: BP Monitoring, Medication Reconciliation, Update PMH in EMR and Vital Signs OB Clinic Coordination of Care: Complex Care and Chronic Disease 1-5, Consent,records obtained, informed consent, Lab and Imaging orders and Results/Orders obtained Special Needs: Heart tones Established Patient Charge Established Patient Point Assignment: 125 Established Patient Point Charge: EP Level 4 (120-155) Assessment & Plan Diagnosis / Problem List (1) Supervision of normal intrauterine in multigravida in third trimester: Status: Acute Plan schedule IOL for 01/10/15. discuss labor precaution, fkc bid, discuss danger s/s and ER precaution. rtc 1 week obc Additional Plan Follow Up: 1 Week (obc)
== END 2025-01-09 11:54 | disposition home or self-care (01) ==
LOC: HODSOBC 10:36
PROVIDERS: Supervising Provider Advanced Practice Midwife; Visit Provider Advanced Practice Midwife
DX: Z34.83 Encounter for supervision of other normal pregnancy, third trimester (principal); Z3A.39 39 weeks gestation of pregnancy
CPT/HCPCS: 99214; G0463

== ENCOUNTER 2025-01-12 00:05 | Inpatient (IN) | payer MEDICAID, SELFPAY ==
[2025-01-12] VITALS (96 sets, daily range): BP systolic 118–171; BP diastolic 60–105; PULSE 65–123; RESP 16–18; TEMP 36.4–36.9; O2SAT 81–100; BMI 33.3
[2025-01-12 01:49] LABS: Collection Type, Urine Clean Catch
[2025-01-12 01:51] LABS: Basophils % (Auto) 1 % (0-2.5); Eosinophils # (Auto) 0.1 Thou/mm3 (0.0-0.5); Eosinophils % (Auto) 2 % (0-10); Hematocrit 34.4 % (36.0-46.0); Hemoglobin 12.2 g/dL (12.0-16.0); Immature Granulocytes % (Auto) 0 % (0-0); Immature Granulocytes Auto 0.03 Thou/mm3 (0.00-0.00); Lymphocytes % (Auto) 27 % (10-50); Mean Corpuscular HGB Conc 35.5 g/dl (31.0-37.0); Mean Corpuscular Hemoglobin 29.1 pg (25.0-35.0); Mean Corpuscular Volume 82 fL (80-100); Monocytes # (Auto) 0.5 Thou/mm3 (0.0-0.8); Monocytes % (Auto) 7 % (0-12); Neutrophils # (Auto) 4.8 Thou/mm3 (1.8-7.7); Neutrophils % (Auto) 64 % (37-80); Nucleated Red Blood Cell % 0 /100 WBC (0); Platelet Count 178 Thou/mm3 (140-440); RDW Standard Deviation 41.3 fL (36.4-46.3); Red Blood Count 4.19 Miln/mm3 (4.00-5.20); White Blood Count 7.6 Thou/mm3 (3.6-11.0)
[2025-01-12] MEDS: MISOPROSTOL 50 mCg TABLET PO ×2 (02:06→06:22)
[2025-01-12 02:11] LABS: Amorphous Crystals,Urine Present (Absent); Bilirubin,Urine Negative (Negative); Blood,Urine Negative (Negative); Clarity,Urine Turbid (Clear/Hazy); Color,Urine Lt-Yellow (Lt Yel-Yel); Glucose, Urine Negative (Negative); Ketones,Urine Negative (Negative); Leukocyte Esterase,Urine Positive (Negative); Nitrite,Urine Negative (Negative); Protein,Urine Negative (Neg - Trace); RBC,Urine 3 /hpf (0-3); Specific Gravity,Urine 1.017 (1.001-1.035); Squamous Epithelial Cell,Urine 15 /hpf (0-5); Urobilinogen,Urine Negative mg/dL (0.0-1.0); WBC,Urine 33 /hpf (0-5)
[2025-01-12 02:20] LABS: Alanine Aminotransferase 8 U/L (10-49); Albumin, Serum 4.2 gm/dL (3.5-5.0); Albumin/Globulin Ratio 1.8 (1.2-2.2); Alkaline Phosphatase 156 U/L (46-116); Anion Gap 12 (7-16); Aspartate Amino Transferase 16 U/L (0-34); BUN/Creatinine Ratio 14 Ratio (12-20); Bilirubin,Total 0.6 mg/dL (0.3-1.2); Blood Urea Nitrogen 11 mg/dL (9-23); Calcium 9.2 mg/dL (8.3-10.6); Calcium (Corrected) 9.2 mg/dL (8.5-10.1); Carbon Dioxide 20.7 mMol/L (20.0-31.0); Chloride 107 mMol/L (98-107); Creatinine (Component) 0.8 mg/dL (0.6-1.3); Estimated Creatinine Clearance 123.9 mL/min (>60); Globulin 2.4 gm/dL (2.3-3.5); Glucose 90 mg/dL (74-106); Osmolality,Calculated 278 (275-295); Potassium 3.7 mMol/L (3.4-5.1); Sodium 140 mMol/L (136-145); Total Protein 6.6 gm/dL (5.7-8.2); Uric Acid 5.6 mg/dL (3.1-7.8); eGFR > 60 See Note
[2025-01-12 02:23] LABS: Fibrinogen 557 mg/dL (175-375); INR 0.9 (0.9-1.3); Partial Thromboplastin Time 24.3 Seconds (22.0-36.0); Prothrombin Time 9.8 Seconds (9.0-12.2)
[2025-01-12 02:28] LABS: Syphilis Nonreactive (Nonreactive)
--- NOTE | 2025-01-12 05:00 | PD.LDHP ---
Documentation for date of: 01/12/25 OB Labor/Induct. HPI History of Present Illness : 2 Term pregnancies: 1 pregnancies: 0 Living children: 1 History of Abortions: Spontaneous and Elective: 0 History of sections: No History of : No Date of last menstrual period: 04/05/24 AMPARO: 01/10/25 Gestational age based on last menstrual period: 40 Comments: H and P dictated on STAT line in [facility] # [id number] Labs Labs: Positive: Rubella Titre, Negative: RPR, Hepatitis B, HIV, Chlamydia, Gonorrhea and Group Beta Strep and Unknown: Herpes Type 1 and Herpes Type 2 Past Medical History Surgical History SURGICAL: Negative Section Meds Home Medications and Allergies Allergies Allergy/AdvReac Type Severity Reaction Status Date / Time No Known Allergies Allergy Verified 01/12/25 00:43 OB Exam Physical Exam Vital signs: Temp Pulse Resp BP 98.1 F 71 17 135/83 H 01/12/25 00:10 01/12/25 03:52 01/12/25 00:10 01/12/25 03:52 OB Results Labs 01/12/25 00:28 01/12/25 00:28 Labs: Short CBC 01/12/25 Range/Units 00:28 WBC 7.6 (3.6-11.0) Thou/mm3 Hgb 12.2 (12.0-16.0) g/dL Hct 34.4 L (36.0-46.0) % Plt Count 178 (140-440) Thou/mm3 BMP 01/12/25 00:28 Sodium 140 Potassium 3.7 Chloride 107 Carbon Dioxide 20.7 BUN 11 Creatinine 0.8 Glucose 90 Calcium 9.2 Liver Function 01/12/25 Range/Units 00:28 Total Bilirubin 0.6 (0.3-1.2) mg/dL AST 16 (0-34) U/L ALT 8 L (10-49) U/L Alkaline Phosphatase 156 H (46-116) U/L Albumin 4.2 (3.5-5.0) gm/dL Urine 01/12/25 Range/Units 00:20 Urine Color Lt-Yellow (Lt Yel-Yel) Urine Clarity Turbid A (Clear/Hazy) Urine pH 7.0 (5.0-7.0) Ur Specific [place] 1.017 (1.001-1.035) Urine Protein Negative (Neg - Trace) Urine Glucose (UA) Negative (Negative)
--- NOTE | 2025-01-12 07:08 | ESHP_ITS ---
RE: OLGA MIKE : 2000 DATE OF ADMISSION: 01/12/2025 HISTORY OF PRESENT ILLNESS: This is a 24-year-old 2, para 1-0-0-1 with intrauterine at 40 weeks and 2 days with a due date of 01/10/2025, who presents to labor and delivery for IOL for postdates. The patient had care that started at [facility] and then transferred to [facility]. She has a tendency toward borderline hypertension in with BPs 130's/80's. She takes no medication for blood pressure. PIH labs are normal and show no proteinuria. ALLERGIES: NO KNOWN DRUG ALLERGIES. MEDICATIONS: multivitamin 1 p.o. daily. PAST MEDICAL HISTORY: Gestational hypertension in her first . PAST SURGICAL HISTORY: Denies. FAMILY HISTORY: Mother and sister both have thyroid cancer. OBSTETRIC HISTORY: 11/12/2023, normal vaginal delivery, 3275 g male. No complications. REVIEW OF SYSTEMS: She denies any chest pain, palpitations, cough, fever, shortness of breath or lower extremity pain. She denies any headache, change in vision or right upper quadrant pain. PHYSICAL EXAMINATION: VITAL SIGNS: Blood pressure 135/83, heart rate 77, respirations 18, temperature 98.6. HEENT: Oropharynx and sclerae are clear. LUNGS: Clear to auscultation bilaterally. HEART: Regular rate and rhythm. ABDOMEN: Gravid, term size consistent with estimated weight 7.5 pounds. EXTREMITIES: Nontender. SKIN: No gross rashes or lesions. NEUROLOGIC: No focal deficit. PELVIC: See RN notes. ASSESSMENT AND PLAN: Intrauterine at 40 weeks and 2 days with due date of 01/10/2025. Labor: Anticipate spontaneous vaginal delivery. Informed consent was obtained. The patient was made aware of the risks, complications, alternatives, and benefits of the proposed procedure and she agrees. She is aware of the risk of operative vaginal delivery and delivery and agrees with these modes of delivery if indicated. DT: 04:59:59 TT: 06:56:00 Ref: [id number] - TID: [id number] MTDD
--- NOTE | 2025-01-12 07:52 | PD.LDPN ---
Documentation for date of: 01/12/25 OB Labor Progress Note Pain Control Comments: Tolerating cervical ripening without the need for pain medication at this time. Pelvic Exam Dilation (cm): 3 Effacement (%): 50 station: -2 Amniotic membrane status: Intact Comments: Per RN exam Contractions Monitor mode: External Contraction frequency: 5-7 Contraction pattern: Tetanic Contraction intensity: Mild Status status: Category l Comments: IUP 40w2d by best dates. Induction of Labor for Postdates Borderline HTN without preeclampsia. (PIH labs wnl) Continue cervical ripening until she Bishops an 8 then proceed with Pitocin. Anticipate .
[2025-01-12] MEDS: RINGERS LACTATED 1000 ML 1,000 ML 100 ML IV (08:29)
[2025-01-12] MEDS: MINERAL OIL 30 ML UDC TOP (11:39)
[2025-01-12] MEDS: OXYTOCIN in NS 20 units 20 UNIT/1,000 ML BAG 125 UNIT IV (11:51)
--- NOTE | 2025-01-12 11:58 | ESDS_ITS ---
DS: Providers Provider Date of admission: 01/12/25 00:05 Primary care physician: Physician No Primary/Family Admitting Provider: Tyrell Farrar MD Attending Provider on Admission: Tyrell Farrar MD Attending Provider on DC: Tyrell Farrar MD Discharging Provider: Tyrell Farrar MD DS: Diagnosis Problem List Completed Was Problem List Reviewed/Reconciled?: Yes Summary/Hosp Course Peripartum Data Delivery Method: Normal Vaginal Delivery Episiotomy Description: None Time Spent with Patient Time attestation: Total time spent providing and/or coordinating discharge services: Exam Vital Signs Temp Pulse Resp BP Pulse Ox O2 Del Method 97.6 F 99 18 129/82 99 Room Air 01/12/25 08:00 01/12/25 11:52 01/12/25 08:00 01/12/25 11:52 01/12/25 11:57 01/12/25 08:00 Discharge Plan Plan Patient Disposition: HOME (Self Care) Patient condition on transfer: Stable Prescriptions/Referrals Prescriptions/Med Rec: New ibuprofen 600 mg tablet 600 mg PO Q6H PRN (Reason: pain) Qty: 30 0RF Continued Vitamin 27 mg iron- 800 mcg tablet 1 tab PO QDAY 90 Days Qty: 90 3RF Referrals: No Primary/Family,Physician [Primary Care Provider] - Patient/Caregiver Discharge Instructions Meds to Beds: No Discharge Activity: activity as tolerated and resume usual activities Other Discharge Activity Instructions:: Follow up office 6 weeks. Education Materials: After a Vaginal , Incision Care After Vaginal , : Caring for Yourself Print Language: Sudanese Activity Restrictions/Additional Instructions: Discharge home with baby. Continue vitamins and iron. Tylenol ibuprofen for pain. Discussed danger signs and symptoms and ER precautions with parameters. Discussed signs and symptoms of infection. Return in 3 weeks visit Stand Alone Forms: Brittny Award Info., Patient Portal Info Letter Discharge Order Discharge Orders: Discharge (Routine); Ordered 01/13/25 Ordered By: Rosa Fuller Planned Discharge Date 01/13/25
--- NOTE | 2025-01-12 11:59 | OBDSUM_ITS ---
Data (Delacruz) Data Hx Section: No : 2 Term: 1 : 0 Livin Abortions: Spontaneous & Theraputic: 0 Delivery Data (Delacruz) Labor Data Initiation of labor: Induction Induction/Augmentation Agent: Cytotec-PO ROM date: 01/12/25 ROM time: 11:22 Amniotic membrane rupture type: Spontaneous Amniotic fluid description: Clear Delivery Data EDC: 01/10/25 EDC calculated by:: LMP/early US confirmation Onset of labor date: 01/12/25 Onset of labor time: 06:22 Complete dilation date: 01/12/25 Complete dilation time: 11:40 Thurmond delivery date: 01/12/25 Thurmond delivery time: 11:40 Gestational age (weeks): 40 Gestational age (days): 2 Placenta delivery date: 01/12/25 Placenta delivery time: 11:51 Stage 1 total time: Labor - Stage 1 Duration 5 hours and 18 minutes Delivered by: Tyrell Farrar Chemical Processing Supervisor at delivery: No Delivery Method Delivery method: Normal Vaginal Delivery Presentation: Vertex position: OA Anesthesia Type Anesthesia Type: None Placenta Placenta delivery description: Spontaneous Cord blood sent to lab: Yes cord blood collection: Cord Blood Type Episiotomy Episiotomy description: None Lacerations #1: Perineal: 2nd degree Perineal repair Sutures used for repair: 3.0 Chromic EBL Estimated blood loss (ml): 200 Umbilical Cord cord description: 3 Vessels Complications Complications: None Data (Delacruz) Data order: 1 Thurmond's gender: Female weight (gms): 6 lb 11.938 oz Weight (pounds): 6 lbs and 11.9 ozs 1 minute: 9 5 minutes: 9
[2025-01-12] MEDS: BENZO/LANO/ALOE (Dermoplast) 60 GM CAN 1 SPRAY TOP (14:21)
[2025-01-12 18:24] LABS: Basophils % (Auto) 0 % (0-2.5); Eosinophils % (Auto) 0 % (0-10); Hematocrit 29.7 % (36.0-46.0); Hemoglobin 10.6 g/dL (12.0-16.0); Immature Granulocytes % (Auto) 0 % (0-0); Immature Granulocytes Auto 0.04 Thou/mm3 (0.00-0.00); Lymphocytes # (Auto) 1.6 Thou/mm3 (1.0-4.8); Lymphocytes % (Auto) 16 % (10-50); Mean Corpuscular HGB Conc 35.7 g/dl (31.0-37.0); Mean Corpuscular Hemoglobin 29.4 pg (25.0-35.0); Mean Corpuscular Volume 82 fL (80-100); Monocytes # (Auto) 0.5 Thou/mm3 (0.0-0.8); Monocytes % (Auto) 4 % (0-12); Neutrophils % (Auto) 79 % (37-80); Nucleated Red Blood Cell % 0 /100 WBC (0); Platelet Count 145 Thou/mm3 (140-440); RDW Standard Deviation 41.1 fL (36.4-46.3); Red Blood Count 3.61 Miln/mm3 (4.00-5.20); White Blood Count 10.1 Thou/mm3 (3.6-11.0)
[2025-01-13] VITALS: BP 125/78; PULSE 79; RESP 18; TEMP 36.6; O2SAT 97
[2025-01-13 04:00] VITALS: BP 119/82; PULSE 85; RESP 17; TEMP 36.8; O2SAT 98
[2025-01-13 08:00] VITALS: BP 123/77; PULSE 103; RESP 17; TEMP 36.6; O2SAT 98
[2025-01-13] MEDS: DOCUSATE SOD 100 MG CAPSULE PO (09:19)
--- NOTE | 2025-01-13 10:58 | PD.LDPPPRG ---
Subjective Subjective Interval history: No complaints of pain. No dizziness. Bonding and breast-feeding Exam Vital Signs Temp Pulse Resp BP Pulse Ox O2 Del Method 97.8 F 103 H 17 123/77 98 Room Air 01/13/25 08:00 01/13/25 08:00 01/13/25 08:00 01/13/25 08:00 01/13/25 08:00 01/13/25 08:00 Narrative Exam Vital signs stable afebrile. Breasts are soft. Fundus firm below the umbilicus. Perineum intact no swelling. Small lochia. Uterus well involuted. 2+ DTRs negative Homans' sign Objective Labs 01/12/25 18:07 01/12/25 00:28 Labs: Laboratory Results - last 24 hr 01/12/25 18:07 WBC 10.1 RBC 3.61 L Hgb 10.6 L Hct 29.7 L MCV 82 MCH 29.4 MCHC 35.7 RDW Std Deviation 41.1 Plt Count 145 D Neut % (Auto) 79 Lymph % (Auto) 16 [place] % (Auto) 4 Eos % (Auto) 0 Baso % (Auto) 0 Neut # (Auto) 8.0 H Lymph # (Auto) 1.6 [place] # (Auto) 0.5 Eos # (Auto) 0.0 Baso # (Auto) 0.0 Immature Gran # (Auto) 0.04 H Absolute Nucleated RBC 0.00 Immature Gran % 0 Nucleated RBC % 0 Assessment & Plan Assessment Comment Assessment comment: 24 hr pp Plan Comment Plan Comment: Discharge home with baby. Continue vitamins and iron. Tylenol ibuprofen for pain. Danger signs. Return in 3 weeks visit. Discussed ER precautions and parameters. Increase fluids. Discussed signs and symptoms of infection. Time Spent With Patient Time: Total time spent is greater than 50% in coordination of care (as documented) at patient's floor/unit and/or counseling patient:
--- NOTE | 2025-01-13 11:00 | PD.LDDS ---
DS: Providers Provider Date of admission: 01/12/25 00:05 Primary care physician: Physician No Primary/Family Admitting Provider: Tyrell Farrar MD Attending Provider on Admission: Rosa Fuller CNM Consults: 01/12/25 13:04 Referral Routine Comment: Attending Provider on DC: Rosa Fuller CNM Discharging Provider: Rosa Fuller CNM DS: Diagnosis Problem List Completed Was Problem List Reviewed/Reconciled?: Yes Summary/Hosp Course Peripartum Data Delivery Method: Normal Vaginal Delivery Episiotomy Description: None Laceration Description: yes (small perineal) complications: none Time Spent with Patient Time attestation: Total time spent providing and/or coordinating discharge services: Exam Vital Signs Temp Pulse Resp BP Pulse Ox O2 Del Method 97.8 F 103 H 17 123/77 98 Room Air 01/13/25 08:00 01/13/25 08:00 01/13/25 08:00 01/13/25 08:00 01/13/25 08:00 01/13/25 08:00 Discharge Plan Plan Patient Disposition: HOME (Self Care) Patient condition on transfer: Stable Prescriptions/Referrals Prescriptions/Med Rec: New ibuprofen 600 mg tablet 600 mg PO Q6H PRN (Reason: pain) Qty: 30 0RF Continued Vitamin 27 mg iron- 800 mcg tablet 1 tab PO QDAY 90 Days Qty: 90 3RF Referrals: No Primary/Family,Physician [Primary Care Provider] - Patient/Caregiver Discharge Instructions Meds to Beds: No Discharge Activity: activity as tolerated and resume usual activities Other Discharge Activity Instructions:: Follow up office 6 weeks. Print Language: Belarusian Activity Restrictions/Additional Instructions: Discharge home with baby. Continue vitamins and iron. Tylenol ibuprofen for pain. Discussed danger signs and symptoms and ER precautions with parameters. Discussed signs and symptoms of infection. Return in 3 weeks visit Stand Alone Forms: Brittny Award Info., Patient Portal Info Letter Discharge Order Discharge Orders: Discharge (Routine); Ordered 01/13/25 Ordered By: Rosa Fuller Planned Discharge Date 01/13/25
[2025-01-13 12:06] VITALS: BP 124/84; PULSE 82; RESP 16; TEMP 36.7
--- NOTE | 2025-01-13 13:15 | PC.NURSE ---
@1220 RN called in to room, patient pass an egg size clot, charge account authorizer made aware and assess patient, no sign of active bleeding, more likely only old blood, no placental fragment noted (per certified prosthetist/orthotist).
== END 2025-01-13 14:45 | disposition home or self-care (01) | DRG 560 ==
LOC: S4SX 12:16 → S4NX 14:43
PROVIDERS: Admitting Provider Specialist; Visit Provider Advanced Practice Midwife
DX: O48.0 Post-term pregnancy (principal); Z37.0 Single live birth; Z3A.40 40 weeks gestation of pregnancy; Z86.32 Personal history of gestational diabetes; O70.1 Second degree perineal laceration during delivery
CPT/HCPCS: 36415; 59409; 80053; 81001; 84550; 85025; 85384; 85610; 85730; 86780; 86850; 86900; 86901; 94762; J2590; J2795; J3010; J7120; A9270

== ENCOUNTER 2025-02-11 13:02 | Outpatient (AMB) | payer MEDICAID, SELFPAY ==
--- NOTE | 2025-02-11 13:01 | AMBOBPPN_ITS ---
Vital Signs 02/11/25 13:07 Height 1.68 m Height Method Stated Weight 87.6 kg Weight Measurement Method Standing Scale BMI 31.1 BP 126/86 H Blood Pressure Source Automatic Cuff Blood Pressure Location Left Upper Arm Position Sitting Respiration 15 Pulse 78 Pulse Source Monitor Temp 98.3 F Temp Source Oral Pulse Oximetry (%) 96 Oxygen Delivery Method Room Air Allergies/Home Meds Allergies & Medications Allergies No Known Allergies Allergy (Verified 02/11/25 13:09) Medication Reconciliation vits no.124-ferrous fum 27 mg iron-folic acid 800 mcg tablet ( Vitamin) 1 tab PO QDAY 90 days #90 tabs 11/07/24 [Rx Confirmed 02/11/25] Intake Visit Data Collection New Patient or Established: Established Patient (seen at [facility] within 3 years) Reason for Visit:: CARE Consent obtained for Telemed Visit: No Seen by Clinical Staff ONLY (RN/MA): No Court Administrator Required: No Do You Feel Safe at Home: Yes Authorities Contacted: N/A PCP or OBGYN visit in last 3 months: Yes Hx Now: No Are you currently on any form of Control: No Pain Present Currently: No Pain Scale Used: Martínez-Mancilla/Numerical Pain scale:: 0 Smoking Status Smoking Status: Never smoker VICE PRESIDENT QUALITY IMPROVEMENT: Past Medical History Past Medical History: No Hx Neurological Disorders, No Hx Breast Cancer, No Hx Cardiac Disorders, No Hx Cancer, No Hx Blood Disorders, No Hx Anemia, No Hx Gastrointestinal Disorders, No Hx Renal Disease, No Hx Diabetes Mellitus Type 1 and No Hx Diabetes Mellitus Type 2 Questionnaires 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 at Home: Yes EPDS - PP Depression Screening [place] Pospartum Depression Screen I have been able to laugh and see the funny side of things: (0) As much as I always could I have looked forward with enjoyment to things: (0) As much as I ever did I have blamed myself unnecessarily when things went wrong: (0) No, never I have been anxious or worried for no good reason: (0) No, not at all I have felt scared or panicky for no very good reason: (0) No, not at all Things have been getting on top of me: (0) No, I have been coping as well as ever I have been so unhappy that I have had difficulty sleeping: (0) No, not at all I have felt sad or miserable: (0) No, not at all I have been so unhappy that I have been crying: (0) No, never The thought of harming myself has occurred to me: (0) Never Total Score: EPDS Score: Referral is indicated for score of 9 or more, suicidal, or if provider believes patient is depressed regardless of score.: 0 EPDS completed yes Care OB Visit Log OB Flowsheet Initial Weight: Not Recorded Date -?-?-?-?-?-?-?-?-?-?-?-?- EGA Weight BP Alb Glu CTX Pres Fundal ht FHR Mov Dilation Station Effacement Hx Notes Visit Note 11/07/24 -?-?-?-?-?-?-?-?-?-?-?-?- 30w 6d 89.811 kg 118/75 absent 30 145 ac tive 24-year-old multipara for first visit. Patient was a transfer of care to [facility]. Her has been uncomplicated. Patient reports movement. Denies contractions. Denies leaking or bleeding as well. Patient is currently taking low-dose baby aspirin because of history of preeclampsia her first . Patient's first was uncomplicated vaginal delivery. Tdap today. Follow-up maternal- appointment November 14. Discussed diet and weight gain. Increase fluids. Will refill vitamins 11/26/24 -?-?-?-?-?-?-?-?-?-?-?-?- 33w 4d 90.889 kg 126/80 absent cephalic 32 156 active EFW 29%, f/mgm 12/23, fetus active. ptl precaution, fkc bid. RTC 2 week OB check and GBS EFW 29%, f/mgm 12/23, fetus a ctive. ptl precaution, fkc bid. RTC 2 week OB check and GBS. protien:+1, NIT-, leuk+1 12/10/24 -?-?-?-?-?-?-?-?-?-?-?-?- 35w 4d 92.76 kg 130/85 absent cephalic 34 151 active f/u MFM 12/19, efw was 29%, fetus active, no c/o of PTL, discuss fkc bid, labor precaution, continue PNV, GBS today. rtc1 week 12/18/24 -?-?-?-?-?-?-?-?-?-?-?-?- 36w 5d 91.229 kg 129/82 absent cephalic 36 154 active doing well, no c/o labor. no leaking or bleeding, fetus active review s/s of labor with patient, continue PNV. discuss fkc bid. RTC 1 week 12/26/24 -?-?-?-?-?-?-?-?-?-?-?-?- 37w 6d 91.682 kg 133/88 occasional cephalic 36 135 active doing well. increased pressure, fetus active, denies leaking or bleeding discuss fkc bid, review labor precaurion and ER precaution. continue PNV, increase fluid. RTC 1 weel 01/02/25 -?-?-?-?-?-?-?-?-?-?-?-?- 38w 6d 92.703 kg 131/84 occasional cephalic 37 146 active doing well, incr eased pressure. no leaking or Bleeding fkc bid, increase fluid. discuss labor precaution, ER precaution and danger s/s. rtc 1 week 01/09/25 -?-?-?-?-?-?-?-?-?-?-?-?- 39w 6d 92.193 kg 131/88 occasional cephalic 38 145 active occ uc and pressure, denies vag bleeding or leaking, fetus active schedule IOL 01/10/25. discuss labor precaution, fkc bid, discuss danger s/s rtc 1 week AMPARO Calculator Estimated Delivery Date Method Current WG Current Estimate 01/10/25 Ultrasound #1 44w 4d Other Estimates 01/10/25 LMP (Certain) 44w 4d 01/10/25 Ultrasound #2 44w 4d Notes Visit Date: 12/26/24 Last Updated by: Rosa Fuller, SUKHDEV 24 yo . LMP 04/06/24. EDC01/10/25. A+,abs-, rpr;;nr, rub imm, hbsag-, hiv-, GC/CT-, hbsag-,hiv-, HC-, GBS-. 1 hr gtt- HPI Interval History: 24 yo for 4 week pp. vag delivery 01/12/25, baby girl. 6-11. sibling adjusting, father involved. no depression, happy, bottle feed. plans on nexplanon. not sex ative. IOL Was or delivery considered high risk: No Delivery type: vaginal Was labor induced: yes and elective Gestational age at delivery (weeks): 40 Delivery date: 01/12/25 Delivering provider: charles Delivery complications: No Delivery complications comment: none Is patient : No Is patient sexually active: No Contraception planned: nexplanon Review of Systems Review of Systems ROS limited to current VICE PRESIDENT QUALITY IMPROVEMENT complaints: Yes Exam Narrative Physical exam: VS stable. normal heart rate. lungs clear. abdomen soft, uterus involuted,below umb. small lochia. neg homans sign, 2+dtr. perineum intact, no swelling General Limitations: no limitations General Appearance: alert, in no apparent distress, comfortable, cooperative, healthy appearing, well developed and well groomed Chest Chest inspection: Present normal inspection and symmetric chest wall rise Resp Respiratory exam: Present normal lung sounds bilaterally Card Cardiovascular exam: Present regular rate, normal rhythm and normal heart sounds Psych Psychiatric exam: Present normal affect and normal mood Office Procedures OB Clinic LOC & Office Proc's Nursing/Assessment Patient Status: Established Patient OB Clinic Nursing Assessment: Medication Reconciliation, Update PMH in EMR and Vital Signs OB Clinic Coordination of Care: Complex Care and Chronic Disease 1-5, Consent,records obtained, informed consent, Education Simp Pt/Fam, Lab and Imaging orders, Results/Orders obtained and Staff clarify orders Established Patient Charge Established Patient Point Assignment: 105 Post Follow-up Visit Post Follow up Visit: Yes Assessment & Plan Diagnosis / Problem List (1) Encounter for care and examination after delivery: Status: Acute Assessment and Plan: discuss contraception. discuss nexplanon side effect and effectiveness, no sex.continue PNV, increase fuid. ok to walk. discuss diet. rtc 3 week nexplanon. discuss 2nd laceration care Care Reviewed delivery summary and any complications: Yes Uterus involuted to: 3 below umb Perineal / incision healing noted: Yes Screened for depression: Yes Depression counseling provided: No Discussed family planning & contraception: Yes Contraception planned: nexplanon Counseling on safe resumption of sexual activity: Yes Counseling on gradual excercise: Yes Discussed and concerns (describe), provided support: No Referred to donor services specialist: No Counseled on good nutrition, hydration, and self care: Yes Reviewed vaccine status: No Chronic & current problems reconciled on problem list: Yes Infant care discussed; questions answered: feeding Follow up: routine/prn Additional counseling & anticipatory guidance provided: rtc 3 week nexplanon
[2025-02-11 13:07] VITALS: BP 126/86; PULSE 78; RESP 15; TEMP 36.8; O2SAT 96; BMI 31.1
== END 2025-02-11 13:42 | disposition home or self-care (01) ==
LOC: HODSOBC 13:02
PROVIDERS: Supervising Provider Advanced Practice Midwife; Visit Provider Advanced Practice Midwife
DX: Z39.2 Encounter for routine postpartum follow-up (principal)

== ENCOUNTER 2025-03-04 13:28 | Outpatient (AMB) | payer MEDICAID, SELFPAY ==
[2025-03-04 13:49] VITALS: BP 124/83; PULSE 69; RESP 17; TEMP 36.4; O2SAT 98; BMI 31.0
--- NOTE | 2025-03-04 13:49 | AMB.GYNCLNOT ---
Vital Signs 03/04/25 13:49 Height 1.68 m Height Method Stated Weight 87.657 kg Weight Measurement Method Standing Scale BMI 31.0 BP 124/83 Blood Pressure Source Automatic Cuff Blood Pressure Location Right Upper Arm Position Sitting Respiration 17 Pulse 69 Pulse Source Monitor Temp 97.6 F Temp Source Temporal Artery Scan Pulse Oximetry (%) 98 Oxygen Delivery Method Room Air Allergies/Home Meds Allergies & Medications Allergies No Known Allergies Allergy (Verified 03/04/25 13:50) Medication Reconciliation vits no.124-ferrous fum 27 mg iron-folic acid 800 mcg tablet ( Vitamin) 1 tab PO QDAY 90 days #90 tabs 11/07/24 [Rx Confirmed 03/04/25] Intake Visit Data Collection New Patient or Established: Established Patient (seen at [facility] within 3 years) Reason for Visit:: NEXPLANON INSERT Seen by Clinical Staff ONLY (RN/MA): No 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 Do You Feel Safe at Home: Yes Authorities Contacted: N/A PCP or OBGYN visit in last 3 months: Yes Date of Last PCP or OBGYN visit: 02/11/25 Hx Now: No Are you currently on any form of Control: No Pain Present Currently: No Pain Scale Used: Martínez-Mancilla/Numerical Pain scale:: 0 Smoking Status Smoking Status: Never smoker 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 Menstrual regularity: regular Flow: normal Monthly: Yes How many days does period last: 5 Age at menarche: 12 Currently sexually active: Yes If not currently sexually active, have you ever been sexually active: 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 1. Little interest or pleasure in doing things: not at all 2. Feeling down, depressed, or hopeless: not at all Total score: 0 PHQ-9 3. Trouble falling or staying asleep, or sleeping too much: Not at all 4. Feeling tired or having little energy: Not at all 5. Poor appetite or overeating: Not at all 6. Feeling bad about yourself - or that you are a failure or have let yourself or your family down: Not at all 7. Trouble concentrating on things, such as reading the newspaper or watching television: Not at all 8. Moving or speaking so slowly that other people could have noticed? - Or the opposite - being so fidgety or restless that you have been moving around a lot more than usual: not at all 9. Thoughts that you would be better off or of hurting yourself in some way: Not at all Total score: 0 If you checked off any problems, how difficult have these problems made it for you to do your work, take care of things at home, or get along with other people?: not difficult at all Source: Developed by Drs. Hussain Aguirre, Lucille Boone, Ino Encarnacion and colleagues, with an educational sharon from [employer]. Depression screen completed yes Social History Living Situation History Marital Status: Lives With: Family Housing: House Tobacco History Smoking Status: Never smoker Second Hand Smoke Exposure: No Alcohol History Alcohol Intake: Never Substance Use History Substance Use: NONE Domestic Abuse History Do You Feel Safe at Home: Yes History of Present Illness HPI Narrative 24-year-old 2 para 2 for Nexplanon insert. Patient has used it in the past she had out after 5 weeks because of spotting. Patient is 8 weeks . She is bottlefeeding her baby girl she is very happy. Denies any existence of chronic illnesses. Denies surgery. And patient denies any social habits. 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 LMP: 02/20/25 Review of Systems Review of Systems Systems Reviewed: All systems reviewed, normal except as documented Exam General Limitations: no limitations General Appearance: alert, in no apparent distress, comfortable, cooperative, healthy appearing, well developed and well groomed Head Head exam: atraumatic, normocephalic and normal inspection Neck Neck exam: Present normal inspection, full ROM and trachea midline Resp Respiratory exam: Present normal lung sounds bilaterally Card Cardiovascular exam: Present regular rate, normal rhythm and normal heart sounds Psych Psychiatric exam: Present normal affect and normal mood Skin Skin exam: Present warm, dry, intact and normal color Results Objective Laboratory: negative preg test Office Procedures OB Clinic LOC & Office Proc's Nursing/Assessment Patient Status: Established Patient OB Clinic Nursing Assessment: Medication Reconciliation, Update PMH in EMR and Vital Signs OB Clinic Coordination of Care: Complex Care and Chronic Disease 1-5, Consent,records obtained, informed consent, Education Simp Pt/Fam and Staff clarify orders Established Patient Charge Established Patient Point Assignment: 85 Established Patient Point Charge: EP Level 3 (80-115) In Clinic Bedside tests Bedside HCG: Yes In Clinic Procedures Minor Surgical Procedure: Yes Results Urine HCG Urine HCG Negative Last Edit by Lindsey Hill MA on 03/04/25 13:54 Assessment & Plan Diagnosis / Problem List (1) Nexplanon insertion: Status: Acute Plan Consent for Nexplanon insert. Reviewed Nexplanon method, side effects, effectiveness. Condoms for 2 weeks. Discussed wound care. Dry for 3 days. Return in a year for Pap. Additional Plan Follow Up: 1 Year (pap) Control Implant/Removal Insertion of Contraceptive Device Ambulatory Dept Location: OB Clinic Insertion of control contraception: Yes Procedure Notes Pre-op diagnosis general: Nexplanon insert. LOT#: [id number], exp: 01/25 Post-op diagnosis procedure note: Same Consent obtained: yes-verbal and yes-written Consent comments: Patient was consented for Nexplanon insert. Negative test. Procedure Notes:: Negative test. Betadine cleanse left forearm. 2 cc of 1% lidocaine was given at the insertion site. Nexplanon capsule was inserted with applicator. Small blood of blood noted. Band-Aid placed. And then pressure dressing applied. Patient left in stable condition, Time out was performed
== END 2025-03-04 14:09 | disposition home or self-care (01) ==
LOC: HODSOBC 13:28
PROVIDERS: Supervising Provider Advanced Practice Midwife; Visit Provider Advanced Practice Midwife
DX: Z30.017 Encounter for initial prescription of implantable subdermal contraceptive (principal)
CPT/HCPCS: 11981; 81025; 99213; J3490; J7301; G0463